=== PATIENT | male | born 1965 | race African-American/Black ===

== ENCOUNTER 2024-07-28 06:11 | Inpatient (IN) | payer MEDICARE, BC ==
[~2024-07-28] VITALS: Ht 180.3 cm; Wt 99.8 kg
[2024-07-28 09:09] LABS: BASO # 0.1 10^3/uL (0.0-0.2); EOS # 0.1 10^3/uL (0.0-0.5); EOS % 0.7 % (0.0-3.0); HEMATOCRIT 48.9 % (42.0-52.0); HEMOGLOBIN 15.7 g/dl (13.5-17.5); LYMPH # 1.8 10^3/uL (1.5-5.0); MEAN CORPUSCULAR HEMOGLOBIN 28.2 pg (27.0-33.0); MEAN CORPUSCULAR HGB CONC 32.1 g/dl (32.0-36.5); MEAN CORPUSCULAR VOLUME 87.8 fl (80.0-96.0); MONO # 0.8 10^3/uL (0.0-0.8); MONO % 11.7 % (2.0-8.0); NEUTROPHILS # 4.3 10^3/uL (1.5-8.5); NEUTROPHILS % 61.2 % (36.0-66.0); PLATELET COUNT, AUTOMATED 213 10^3/uL (150-450); RED BLOOD COUNT 5.57 10^6/uL (4.30-6.10); WHITE BLOOD COUNT 7.1 10^3/uL (4.0-10.0)
[2024-07-28 09:22] LABS: CALCIUM LEVEL 8.7 MG/DL (8.5-10.1); CREATININE FOR GFR 1.19 MG/DL (0.70-1.30); GLOMERULAR FILTRATION RATE 70.8 (>56); POTASSIUM SERUM 4.4 MMOL/L (3.5-5.1)
[2024-07-28 09:44] LABS: URIC ACID 5.8 MG/DL (3.7-9.2)
[2024-07-28] MEDS ORDERED: ULOR80TA PO (09:59)
[2024-07-28] MEDS ORDERED: AMLO25TA PO (09:59)
[2024-07-28] MEDS ORDERED: COLC0.6T47 PO (09:59)
[2024-07-28 10:44] LABS: C REACTIVE PROTEIN QUANTITATIV 1.93 MG/DL (<1.0)
[2024-07-28 11:10] LABS: ERYTHROCYTE SEDIMENTATION RATE 25 mm/hr (0-20)
[2024-07-28] MEDS: KETOROLAC 30 MG/ML 1ML VIAL IV ONE (13:44)
[2024-07-28] MEDS: LIDOCAINE 1% MDV 20ML VIAL IM ONE (13:55)
[2024-07-28] MEDS ORDERED: VANCOMYCIN HCL 1 MG in IV FLUID PLACE HOLDER 1 EA IV SCH (14:15)
[2024-07-28] MEDS ORDERED: cefTAZidime 2 GM in DEXTROSE 5% (D5W) ADV/MINI-BAG 50 ML IV SCH (14:15)
[2024-07-28] MEDS: PIPERACILLIN/TAZOBACTAM SOD 4.5 GM in DEXTROSE 5% (D5W) ADV/MINI-BAG 50 ML IV ONE (14:17)
[2024-07-28] MEDS: traMADol 50 MG TAB PO ONE (14:17)
[2024-07-28 14:18] LABS: SOURCE, BODY FLUID RT ELBOW; SYNOVIAL FLUID COLOR YELLOW (COLORLESS)
[2024-07-28 14:23] LABS: CRYSTALS, BODY FLUID NONE SEEN (NONE SEEN); SOURCE, BODY FLUID CRYSTALS RT ELBOW
[2024-07-28 15:00] VITALS: BP 126/81; TEMP 97.9; O2SAT 98
[2024-07-28 15:06] LABS: SOURCE, BODY FLUID GLUCOSE RT ELBOW
[2024-07-28] MEDS: VANCOMYCIN HCL 2,000 MG, VIAL MATE ADAPTER 1 EACH in NS 500 ML IV ONE (15:26)
[2024-07-28] MEDS ORDERED: MIRALAX *UNIT DOSE* 17GM PACKET PO PRN (15:35)
[2024-07-28] MEDS ORDERED: SENOKOT S TAB PO PRN (15:35)
[2024-07-28] MEDS ORDERED: oxyCODONE 5MG TAB PO PRN (15:35)
[2024-07-28] MEDS ORDERED: MOM 30ML SUSPENSION UDC PO PRN (15:35)
[2024-07-28] MEDS: oxyCODONE 5MG TAB PO ONE (16:00)
[2024-07-28] MEDS ORDERED: HOME MED LIST COMPLETE! XX SCH ×2 (16:20)
[2024-07-28] MEDS: carisoprodoL 350 MG TAB PO ONE (16:39)
[2024-07-28 16:40] LABS: SOURCE, BODY FLUID URIC ACID RT ELBOW; URIC ACID, BODY FLUID 5.2 MG/DL (NOT ESTABLISHED)
[2024-07-28] MEDS: oxyCODONE 5MG TAB PO PRN (16:41)
[2024-07-28] MEDS ORDERED: ONDANSETRON 4MG 2ML VIAL IV PRN (16:55)
[2024-07-28] MEDS: LR 1,000 ML IV ONE (17:44)
[2024-07-28] MEDS: NS (Normal Saline) 0.9% 1,000 ML IV SCH (19:24)
[2024-07-28] MEDS: ACETAMINOPHEN 500 MG TAB PO SCH (19:27)
[2024-07-28] MEDS: KETOROLAC 30 MG/ML 1ML VIAL IV SCH (19:29)
[2024-07-28] MEDS: FEBUXOSTAT 40 MG TABLET (ULORIC) PO SCH (19:31)
[2024-07-28 19:32] VITALS: BP 126/81; TEMP 97.5
[2024-07-29] MEDS: VANCOMYCIN HCL 1,500 MG, VIAL MATE ADAPTER 1 EACH in NS 500 ML IV SCH (00:21)
[2024-07-29 05:20] VITALS: BP 106/65; TEMP 97.3
[2024-07-29 08:46] LABS: CALCIUM LEVEL 8.1 MG/DL (8.5-10.1); CREATININE FOR GFR 1.09 MG/DL (0.70-1.30); GLOMERULAR FILTRATION RATE 78.7 (>56)
[2024-07-29] MEDS ORDERED: amLODIPine 5 MG TAB PO SCH (09:00)
[2024-07-29 12:00] VITALS: BP 130/81; TEMP 97.5; O2SAT 98
[2024-07-29] MEDS ORDERED: CEPH500T PO (17:18)
[2024-07-29] MEDS ORDERED: IBUP-1022 PO (17:18)
[2024-07-29] MEDS ORDERED: PRED10TA2 PO (17:18)
[2024-07-29] MEDS ORDERED: PANT20TA6 PO (17:18)
[2024-07-30] MEDS ORDERED: LIDOCAINE 2% 100MG/5ML SDV (FOR ANES.) As Ordered ONE (06:59)
[2024-07-30] MEDS ORDERED: propofoL 200 MG/20 ML VIAL As Ordered ONE (07:00)
[2024-07-30] MEDS ORDERED: ONDANSETRON 4MG 2ML VIAL As Ordered ONE (07:01)
== END 2024-07-29 17:30 | disposition home or self-care (01) | DRG 554 ==
LOC: M ED 06:11 → M ED INP 14:06 → M MS5PR 14:57
PROVIDERS: ADMIT General Practice; ATTEND Internal Medicine Nephrology
PROC: 0R9L3ZZ Drainage of Right Elbow Joint, Percutaneous Approach (ICD-10-PCS; principal; 2024-07-28)
DX: M10.021 Idiopathic gout, right elbow (principal); I10 Essential (primary) hypertension; M79.89 Other specified soft tissue disorders; E66.9 Obesity, unspecified; Z68.30 Body mass index [BMI] 30.0-30.9, adult; Z98.1 Arthrodesis status; Z79.899 Other long term (current) drug therapy; Z88.5 Allergy status to narcotic agent; Z88.8 Allergy status to other drugs, medicaments and biological substances

== ENCOUNTER → 2024-08-12 | Outpatient (REF) | payer MEDICARE, BC ==
[~2024-08-12] MED LIST: AMLO25TA PO; CEPH500T PO; COLC0.6T47 PO; IBUP-1022 PO; PANT20TA6 PO; PRED10TA2 PO; ULOR80TA PO
== END ==
LOC: M SFHCLERA 09:21
PROVIDERS: ATTEND Internal Medicine
DX: Z53.21 Procedure and treatment not carried out due to patient leaving prior to being seen by health care provider (principal); M10.021 Idiopathic gout, right elbow

== ENCOUNTER → 2024-11-10 | Outpatient (REF) | payer BC, MEDICARE ==
[2024-11-10 18:24] LABS: APPEARANCE, URINE CLEAR (CLEAR); BACTERIA, URINE AUTO NEGATIVE (NEGATIVE); BILIRUBIN, URINE AUTO NEGATIVE (NEGATIVE); BLOOD, URINE BLOOD NEGATIVE (NEGATIVE); GLUCOSE, URINE (UA) AUTO NEGATIVE (NEGATIVE); KETONE, URINE AUTO NEGATIVE (NEGATIVE); LEUKOCYTE ESTERASE, URINE AUTO NEGATIVE (NEGATIVE); MUCUS, URINE SMALL (NEGATIVE); NITRITE, URINE AUTO NEGATIVE (NEGATIVE); PROTEIN, URINE AUTO NEGATIVE (NEGATIVE); RBC, URINE AUTO 1 /HPF (0-3); SPECIFIC GRAVITY URINE AUTO 1.019 (1.002-1.035); SQUAMOUS EPITHELIAL CELL UR AU 0 /HPF (0-6); UROBILINOGEN, URINE AUTO 0.2 mg/dL (0.0-2.0); WBC, URINE AUTO 0 /HPF (0-3)
[2024-11-10 18:59] LABS: ALT/SGPT 49.0 U/L (7.0-40); AST/SGOT 30.0 U/L (<34); CALCIUM LEVEL 9.9 MG/DL (8.5-10.1); CARBON DIOXIDE LEVEL 28.0 MMOL/L (20-31); CHLORIDE LEVEL 106.0 MMOL/L (98-107); CHOLESTEROL LEVEL 188.0 MG/DL (<200); CHOLESTEROL RISK RATIO 4.93 (<5); CREATININE FOR GFR 1.15 MG/DL (0.70-1.30); GLOMERULAR FILTRATION RATE 73.3 (>56); LDL CHOLESTEROL 124.5 MG/DL (<100); NON-HDL-C 149.9 MG/DL; POTASSIUM SERUM 4.7 MMOL/L (3.5-5.1); SODIUM LEVEL 144.0 MMOL/L (136-145); TRIGLYCERIDES LEVEL 127.0 MG/DL (<150)
[2024-11-10 19:13] LABS: ESTIMATED AVERAGE GLUCOSE 94.0 MG/DL (60-110)
== END ==
LOC: M SFHCLERA 14:31
PROVIDERS: ATTEND Internal Medicine
DX: I10 Essential (primary) hypertension (principal); M10.021 Idiopathic gout, right elbow

== ENCOUNTER → 2025-02-02 | Outpatient (REF) | payer BC, MEDICARE ==
[~2025-02-02] MED LIST changes: +ATOR40TA75 PO; -COLC0.6T47 PO; +COLC0.6T53 PO; +EZET10TA57 PO; -IBUP-1022 PO; +IBUP600T42 PO; +PERC5TAB12 PO
[2025-02-02 19:03] LABS: BASO # 0.1 10^3/uL (0.0-0.2); BASO % 1.3 % (0.0-1.0); EOS # 0.1 10^3/uL (0.0-0.5); EOS % 2.8 % (0.0-3.0); LYMPH # 1.3 10^3/uL (1.5-5.0); LYMPH % 32.8 % (24.0-44.0); MONO # 0.4 10^3/uL (0.0-0.8); MONO % 9.5 % (2.0-8.0); NEUTROPHILS # 2.1 10^3/uL (1.5-8.5); NEUTROPHILS % 53.3 % (36.0-66.0); PLATELET COUNT, AUTOMATED 187 10^3/uL (150-450)
[2025-02-02 19:06] LABS: ALT/SGPT 68 U/L (7.0-40); AST/SGOT 39 U/L (<34); CALCIUM LEVEL 9.3 MG/DL (8.5-10.1); CARBON DIOXIDE LEVEL 30 MMOL/L (20-31); CHLORIDE LEVEL 105 MMOL/L (98-107); CREATININE FOR GFR 1.26 MG/DL (0.70-1.30); GLOMERULAR FILTRATION RATE 65.7 (>56); IRON (FE) 66 UG/DL (65-175); PERCENT SATURATION 22.8 % (19.7-50.0); POTASSIUM SERUM 4.4 MMOL/L (3.5-5.1); PSA SCREENING 0.60 NG/ML (< 4.00); SODIUM LEVEL 142 MMOL/L (136-145)
[2025-02-02 19:16] LABS: HEPATITIS B SURFACE ANTIBODY NEGATIVE (POSITIVE)
[2025-02-02 19:40] LABS: HIV 1&2 SCREEN NEGATIVE (NEGATIVE)
[2025-02-02 19:49] LABS: HEPATITIS C VIRUS ABY INDEX < 0.02 INDEX (<0.8)
[2025-02-02 19:50] LABS: CPK CREATINE PHOSPHOKINASE 117 U/L (46-171)
== END ==
LOC: M SFHCLERA 09:29
PROVIDERS: ATTEND Internal Medicine
DX: Z00.01 Encounter for general adult medical examination with abnormal findings (principal); R94.5 Abnormal results of liver function studies; G25.81 Restless legs syndrome
CPT/HCPCS: 80053; 82550; 82728; 83550; 85025; 86704; 86705; 86706; 86803; 87340; 87389; G0103